=== PATIENT | female | born 1995 | race Caucasian/White ===

== ENCOUNTER → 2018-11-20 | Outpatient (CLI) | payer SELFPAY ==
[2018-11-20 07:36] LABS: BASO % 1 % (0-3); EOS # 0.1 x10^3/uL (0.0-0.7); EOS % 1 % (0-3); HEMATOCRIT 37.9 % (36.0-47.0); HEMOGLOBIN 13.1 g/dL (12.0-15.5); LYMPH # 2.7 x10^3/uL (1.0-4.8); LYMPH % 39 % (24-48); MEAN CORPUSCULAR HEMOGLOBIN 31 pg (25-35); MEAN CORPUSCULAR HGB CONC 35 g/dL (31-37); MEAN CORPUSCULAR VOLUME 91 fL (79-100); MONO # 0.6 x10^3/uL (0.0-1.1); MONO % 8 % (0-9); NEUT # 3.5 x10^3/uL (1.8-7.7); NEUT % 51 % (31-73); PLATELET COUNT 294 x10^3/uL (140-400); RED BLOOD COUNT 4.18 x10^6/uL (3.50-5.40); RED CELL DISTRIBUTION WIDTH 12.6 % (11.5-14.5); WHITE BLOOD COUNT 6.9 x10^3/uL (4.0-11.0)
[2018-11-20 08:02] LABS: FREE T4 0.99 ng/dL (0.76-1.46); THYROID STIM HORMONE (TSH) 4.342 uIU/mL (0.358-3.74)
[2018-11-20 11:16] LABS: PROGESTERONE 1.6 ng/mL (.); PROLACTIN 19.4 ng/mL (4.8-23.3)
== END | disposition home or self-care (01) ==
LOC: LAB 07:13
PROVIDERS: ATTEND Obstetrics & Gynecology
DX: N91.1 Secondary amenorrhea (principal)
CPT/HCPCS: 36415; 84144; 84146; 84439; 84443; 84702; 85025

== ENCOUNTER → 2019-02-16 | Outpatient (CLI) | payer SELFPAY ==
[~2019-02-16] MED LIST: IOHEXOL 300 MG/ML 100ML VIAL. IJ ONE
--- NOTE | 2019-02-16 10:15 | RAD ---
Examination: PELVIS W/TV History: Dysfunctional uterine bleeding Comparison/Correlation: None Findings: Transabdominal and transvaginal pelvic ultrasound exam was performed. Transvaginal technique was utilized to better assess the adnexal structures. Uterus measures 12.7 cm x 7.2 cm x 5.1 cm. Endometrial thickness is 1.2 cm at the fundal level with normal echogenicity. Bicornuate uterus identified. The myometrium is unremarkable. Right ovary measures 4.3 cm x 2.2 cm 0.4 cm. Multiple small right adnexal follicles are present. Left ovary measures 4.9 cm x 2.9 cm x 3.4 cm. There is a 2.3 cm diameter left ovarian intermediate echogenicity well circumscribed structure which does not have flow on color Doppler imaging. No pelvic free fluid. Impression: Bicornuate uterus. Left adnexal intermediate echogenicity well-circumscribed complex cyst or mass. Correlate with any known or suspected history of endometriosis. Further evaluation with MRI of the pelvis without and with contrast may be helpful for further characterization and stability is unknown. Electronically signed by: David Worrell MD (02/16/2019 10:12 AM) [facility]
--- NOTE | 2019-02-16 18:19 | RAD ---
Examination: HYSTEROSALPINGOGRAM W/INJ History: Irregular menses. Comparison/Correlation: None Findings: Risks and benefits of hysterosalpingogram were discussed with the patient and informed consent was obtained. Fluoroscopy was utilized for 1.4 minutes. A total of 5 images were obtained. Preliminary image of the pelvis without contrast is unremarkable. Cleansing with Betadine and external genitalia was performed. Subsequently, a speculum was placed. Further cleansing with Betadine about the cervical os was performed. Initial attempt at catheter placement into the cervical os was unsuccessful. Repeat attempt with a second HSG catheter was successful with contrast within the uterine cavity. Contrast is noted to spill into the peritoneal cavity bilaterally. No suspicious filling defects within the uterine cervix. No definite suspicious findings involving the fallopian tubes. Impression: Spillage of contrast into the peritoneal cavity bilaterally is present. Uterine cavity is unremarkable. Electronically signed by: David Worrell MD (02/16/2019 6:16 PM) [facility]
== END ==
LOC: US 07:18
PROVIDERS: ATTEND Obstetrics & Gynecology
DX: N92.6 Irregular menstruation, unspecified (principal); Z79.899 Other long term (current) drug therapy
CPT/HCPCS: 36415; 58340; 74740; 76830; 76856; 84702